=== PATIENT | female | born 1950 ===

== ENCOUNTER → 2020-08-13 | Outpatient (CLI) | payer MEDICARE, OTHER ==
[~2020-08-13] MED LIST: LOSA1TAB19 PO; ROPI2TAB8 PO
== END | disposition home or self-care (01) ==
LOC: STAR 09:00
PROVIDERS: ATTEND Colon & Rectal Surgery
DX: Z01.818 Encounter for other preprocedural examination (principal); I45.10 Unspecified right bundle-branch block
CPT/HCPCS: 36415; 80053; 93005